=== PATIENT | female | born 1950 | race Caucasian/White ===

== ENCOUNTER 2022-02-24 13:32 | Outpatient (CLI) | payer MEDICARE, SELFPAY ==
--- NOTE | 2022-02-24 13:42 | MM_ITS ---
WS: [id number] BILATERAL 3D TOMOSYNTHESIS DIGITAL SCREENING MAMMOGRAPHY WITH CAD CLINICAL INFORMATION: SCREENING HISTORY: Screening mammogram. No current complaints. COMPARISON: None. TECHNIQUE: Bilateral CC and MLO views. FINDINGS: Scattered fibroglandular densities bilaterally. Ovoid 14 mm asymmetric density upper quadrant RIGHT b reast anteriorly near the 12 to 1:00 position. Recommend further evaluation with ultrasound 11 to 3:0 0 position. Punctate and lucent centered calcifications. LEFT breast is unremarkable. MM/[place] [id number] IMPRESSION: BI-RADS: 0-Incomplete: Need additional imaging evaluation FOLLOW UP: Need Additional Imaging Recommend further evaluation RIGHT breast awith ultrasound 11 to 3:00 position.
--- NOTE | 2022-02-24 13:42 | XR_ITS ---
WS: [email or web address] SCREENING DEXA SCAN [employer] CLINICAL INFORMATION: POSTMENOPAUSAL COMPARISON: None. FINDINGS: The L1-L4 bone mineral density measures 1.379 g/cm2. This corresponds to a T score score of 1.7 and Z score of 2.2. Left femoral neck bone mineral density measures 0.826 g/cm2. This corresponds to a T score of -1.4 an d Z score of -0.7. Right femoral neck bone mineral density measures 0.983 g/cm2. This corresponds to a T score -0.2of an d Z score of 0.5. Mean femoral neck bone mineral density measures 0.905 g/cm2. This corresponds to a T score of -0.8 an d Z score of -0.1. XR/XR DEXA axial skeleton* [id number] IMPRESSION: Osteopenia in the femoral necks. Normal bone mineralization calculated in the l umbar spine although spuriously elevated due to endplate sclerosis. Patient's FRAX calculated 10 year probability for major osteoporotic fracture i s 15.0 % and osteoporotic hip fracture is 3.7%.
== END 2022-02-24 13:33 | disposition home or self-care (01) ==
PROVIDERS: Visit Provider Physician Assistant
DX: Z12.31 Encounter for screening mammogram for malignant neoplasm of breast (principal); Z78.0 Asymptomatic menopausal state; Z13.820 Encounter for screening for osteoporosis
CPT/HCPCS: 77063; 77067; 77080

== ENCOUNTER 2022-04-13 10:27 | Outpatient (CLI) | payer MEDICARE, SELFPAY ==
--- NOTE | 2022-04-13 10:37 | US_ITS ---
WS: [email or web address] ULTRASOUND BREAST RIGHT TECHNIQUE: Ultrasound right breast focused area of concern. CLINICAL INFORMATION: ABNORMAL MAMMOGRAM COMPARISON: February 24, 2022 FINDINGS: Ultrasound RIGHT breast 10 to 1:00 position. Ovoid hypoechoic solid nodule at the 10:00 position 5 cm from the nipple measuring 12 x 3 x 8 mm. This lesion is indeterminant and recommend further evaluati on with ultrasound-guided biopsy. This corresponds to the mammographic findings. US/US breast RT limited* [id number] IMPRESSION: BI-RADS 4 SUSPICIOUS FOLLOW UP: RECOMMEND ADDITIONAL EVALUATION WITH ULTRASOUND-GUIDED BIOPSY.
== END 2022-04-13 10:28 | disposition home or self-care (01) ==
LOC: RAD 10:29
PROVIDERS: PCP Physician Assistant; Visit Provider Physician Assistant
DX: R92.8 Other abnormal and inconclusive findings on diagnostic imaging of breast (principal)
CPT/HCPCS: 76642

== ENCOUNTER 2022-05-13 12:11 | Outpatient (CLI) | payer MEDICARE, SELFPAY ==
--- NOTE | 2022-05-13 12:22 | US_ITS ---
WS: [email or web address] ULTRASOUND-GUIDED RIGHT BREAST BIOPSY CLINICAL INFORMATION: BREAST LESION COMPARISON: April 13, 2022 FINDINGS: The procedure including risks, benefits, and complications were discussed with the patient who agreed to proceed. Using sterile technique patient was prepped and draped in the usual sterile fashion. Aft er 1% lidocaine utilizing real-time ultrasound guidance 5 14-gauge cores were obtained of the RIGHT b reast lesion at the 10 o'clock position. Subsequently a titanium clip was placed in the biopsy cavity . No immediate complications. Pathology demonstrates A. Breast, right breast mass , ultrasound-guided biopsy: - Benign breast tissue with stromal sclerosis. - No malignancy identified. US/[place] [id number] IMPRESSION: 1. Uncomplicated ultrasound-guided RIGHT breast biopsy. 2. The pathology demonstrates benign breast tissue with stromal sclerosis. No malignancy identified. 3. Recommend return to annual screening mammography. BI-RADS: 2-Benign FOLLOW UP: 1 Year Follow-up
== END 2022-05-13 12:12 | disposition home or self-care (01) ==
LOC: RAD 12:14
PROVIDERS: PCP Physician Assistant; Visit Provider Physician Assistant
DX: R92.8 Other abnormal and inconclusive findings on diagnostic imaging of breast (principal)
CPT/HCPCS: 19083; 88305

== ENCOUNTER 2023-05-17 11:04 | Outpatient (CLI) | payer MEDICARE, SELFPAY ==
--- NOTE | 2023-05-17 11:12 | MM_ITS ---
WS: [id number] BILATERAL 3D TOMOSYNTHESIS DIGITAL SCREENING MAMMOGRAPHY WITH CAD CLINICAL INFORMATION: SCREENING HISTORY: Screening mammogram. No current complaints. COMPARISON: 2021 TECHNIQUE: Bilateral CC and MLO views. FINDINGS: Scattered fibroglandular densities bilaterally. No suspicious focal mass, asymmetry, calcifications, or architectural distortion. No evidence of malignancy. Incidental punctate and lucent centered calci fications. Biopsy clip RIGHT breast with adjacent stable ovoid nodule measuring 11 mm. Stable archite ctural distortion in the central RIGHT breast. IMPRESSION: MM/[place] [id number] BI-RADS: 2-Benign FOLLOW UP: 1 Year Follow-up Recommend return to annual screening mammography.
== END 2023-05-17 11:05 | disposition home or self-care (01) ==
PROVIDERS: PCP Physician Assistant; Visit Provider Physician Assistant
DX: Z12.31 Encounter for screening mammogram for malignant neoplasm of breast (principal)
CPT/HCPCS: 77063; 77067

== ENCOUNTER → 2023-05-25 08:56 | Outpatient (BNVA) | payer MEDICARE, SELFPAY | PROVIDERS: PCP Physician Assistant; Referring Provider Physician Assistant; Visit Provider Anesthesiology Pain Medicine | DX: M25.551 Pain in right hip (principal) | CPT/HCPCS: 99203 ==